=== PATIENT | male | born 1995 | race African-American/Black ===

== ENCOUNTER 2017-01-20 12:30 | Emergency (ER) | payer SELFPAY ==
[~2017-01-20] VITALS: Ht 185.4 cm; Wt 81.6 kg
[2017-01-20 12:43] VITALS: BP 129/86
[2017-01-20] MEDS ORDERED: Lidocaine 2% Visc 15ml soln ORAL ONE (13:00)
[2017-01-20] MEDS ORDERED: Mylanta II UD 30ml ORAL ONE (13:00)
[2017-01-20] MEDS ORDERED: Dicyclomine HCl 10mg/5ml oral soln ORAL ONE (13:00)
[2017-01-20] MEDS ORDERED: MIRALAX119 GM PO (13:46)
[2017-01-20] MEDS ORDERED: PEPCID40 MG PO (13:46)
--- NOTE | 2017-01-20 14:06 | Diagnostic Imaging Report ---
Indications: Abdominal pain. Technique: AP view of the abdomen Findings: Comparison: None. Bowel gas pattern is unremarkable. No abnormal calcific or soft tissue densities are demonstrated. Visualized skeletal structures are unremarkable. IMPRESSION: Negative abdominal radiograph
[2017-01-20 14:23] VITALS: BP 129/86
--- NOTE | 2017-01-20 16:41 | Emergency Room Report ---
History of Present Illness General Chief Complaint: General Complaint Source: Patient Present Illness HPI The patient is a 21-year-old male presenting with abdominal pain. The patient states that this pain began yesterday after eating danish bbq. The pain is described as a 4/10 dull ache to the mid upper abdomen and does not radiate. Pain is constant. No known provoking or leading factors. The patient does admit to recent constipation. Last bowel movement was today but was small and hard. The last bowel movement before this was 3 days prior. The patient denies any other symptoms including nausea, vomiting, fever, chills, diarrhea, dysuria, back pain, myalgia Allergies: Coded Allergies: No Known Allergies (Unverified , 01/20/17) Patient History Past Medical History: see triage record Pertinent Family History: none Reviewed Nursing Documentation: PMH: Agreed, PSxH: Agreed Nursing Documentation-PMH Past Medical History: No Stated History Review of Systems All Other Systems: negative except mentioned in HPI Physical Exam Vital Signs Date Time Temp Pulse Resp B/P Pulse Ox O2 Delivery O2 Flow Rate FiO2 01/20/17 12:43 97.9 88 18 129/86 100 Room Air Sp02 EP Interpretation: reviewed, normal General Appearance: no apparent distress, alert, GCS 15, non-toxic Head: normocephalic, atraumatic Eyes: bilateral eye PERRL, bilateral eye normal inspection ENT: hearing grossly normal, normal pharynx, no angioedema, normal voice Neck: full range of motion, supple/symm/no masses Respiratory: chest non-tender, lungs clear, normal breath sounds, no wheezing, speaking full sentences Cardiovascular #1: regular rate, rhythm, no edema Gastrointestinal: normal bowel sounds, soft, no mass, no guarding, tenderness - epigastric Rectal: deferred Genitourinary: normal inspection, no CVA tenderness Musculoskeletal: back normal, gait/station normal, normal range of motion, non- tender Neurologic: alert, oriented x3, responsive, motor strength/tone normal, sensory intact, speech normal Psychiatric: judgement/insight normal, memory normal, mood/affect normal, no suicidal/homicidal ideation Skin: normal color, no rash, warm/dry, well hydrated Lymphatic: no adenopathy Medical Decision Making PA Attestation Dr. Quigley is my supervising physician. Patient management was discussed with my supervising physician Diagnostic Impression: Primary Impression: GERD (gastroesophageal reflux disease) Additional Impression: Constipation ER Course The patient is a 21-year-old male presenting with abdominal pain Differential diagnoses considered but not limited to: Gastroenteritis, GERD, constipation, appendicitis Physical exam: Vitals are within normal limits. No apparent distress Abdomen is soft. Tenderness to palpation over the epigastric region only. No McBurney point tenderness. Normal bowel sounds. No CVA tenderness The patient is given a GI cocktail and is feeling better Abdominal x-ray unremarkable The patient was discharged home with a prescription for MiraLAX and Pepcid. ER precautions are given and the patient will followup with PMD Other X-Ray Diagnostic Results Other X-Ray Diagnostic Results : X-Ray Ordered: Abd xray Date: Jan 20, 2017 EP Interpretation: Yes Findings: no fractures, no dislocation, no soft tissue swelling Number of Views: 1 PA Scribe Text I am acting as scribe for my supervising physician. My supervising physician's interpretation of the abd xrays are there are no acute findings Last Vital Signs Date Time Temp Pulse Resp B/P Pulse Ox O2 Delivery O2 Flow Rate FiO2 01/20/17 14:23 97.9 18 129/86 100 Room Air 01/20/17 12:43 91 Status: unchanged Disposition: HOME, SELF-CARE Condition: Improved Scripts Polyethylene Glycol 3350 (MIRALAX) 119 Gm Powder 17 GM PO DAILY, #119 GM Prov: EUGENIA [email or web address] 01/20/17 Famotidine (PEPCID) 40 Mg Tablet 40 MG PO DAILY, #7 TAB 0 Refills Prov: EUGENIA WEEKS 01/20/17 Patient Instructions: Constipation, Adult, Indigestion Additional Instructions: I discussed my findings with the patient. All questions and concerns have been answered. Treatment and medication compliance have been addressed. I advised the patient that they need to follow up with PMD in 3-5 days. Return to ED if symptoms worsen, new symptoms arise, or if needed for any reason. Patient verbalized understanding of discharge instructions. EUGENIA WEEKS Jan 20, 2017 16:41
== END 2017-01-20 13:55 | disposition home or self-care (01) ==
LOC: EMR 13:12
DX: K59.00 Constipation, unspecified (principal); K21.9 Gastro-esophageal reflux disease without esophagitis
CPT/HCPCS: 74000; 99284

== ENCOUNTER 2017-01-23 09:36 | Emergency (ER) | payer SELFPAY ==
[~2017-01-23] VITALS: Ht 190.5 cm; Wt 90.7 kg
[~2017-01-23 09:36] MED LIST: MIRALAX119 GM PO; PEPCID40 MG PO
[2017-01-23 09:55] VITALS: BP 119/81
[2017-01-23] MEDS ORDERED: Dicyclomine HCl 10mg/5ml oral soln ORAL ONE (10:00)
[2017-01-23] MEDS ORDERED: Mylanta II UD 30ml ORAL ONE (10:00)
[2017-01-23] MEDS ORDERED: Lidocaine 2% Visc 15ml soln ORAL ONE (10:00)
[2017-01-23] MEDS ORDERED: RANITIDINE HCL150 MG ORAL (10:13)
[2017-01-23 10:20] VITALS: BP 119/81
--- NOTE | 2017-01-23 10:48 | Emergency Room Report ---
History of Present Illness General Chief Complaint: Abdominal Pain Source: Patient Present Illness HPI 21-year-old male presents ED complaining of abdominal pain x3 days. Patient states the pain is epigastric, burning, 8/10, nonradiating. Denies chest pain or shortness of breath. Denies nausea or vomiting. Patient states she was here 3 days ago for similar complaint. Was given GI cocktail-noted to have gastritis with substernal he discharged on Pepcid. Patient states he was unable to fill the Pepcid prescription. No other aggravating or relieving factors. Denies any other associated symptoms Allergies: Coded Allergies: No Known Allergies (Unverified , 01/20/17) Patient History Past Medical History: none Past Surgical History: none Pertinent Family History: none Social History: Denies: alcohol use, drug use, smoking Immunizations: UTD Reviewed Nursing Documentation: PMH: Agreed, PSxH: Agreed Nursing Documentation-PMH Past Medical History: No Stated History Review of Systems All Other Systems: negative except mentioned in HPI Physical Exam Vital Signs Date Time Temp Pulse Resp B/P Pulse Ox O2 Delivery O2 Flow Rate FiO2 01/23/17 09:42 98.6 80 18 119/81 98 Room Air Sp02 EP Interpretation: reviewed, normal General Appearance: no apparent distress, alert, GCS 15, non-toxic Head: normocephalic Eyes: bilateral eye PERRL, bilateral eye normal inspection ENT: normal ENT inspection Neck: normal inspection Respiratory: normal inspection Cardiovascular #1: normal inspection Gastrointestinal: normal bowel sounds, soft, non-distended, no guarding, no rebound, tenderness - epigastric Rectal: deferred Genitourinary: no CVA tenderness Musculoskeletal: normal inspection Neurologic: alert, oriented x3, responsive, motor strength/tone normal, sensory intact, speech normal Psychiatric: normal inspection Skin: normal inspection Lymphatic: normal inspection Medical Decision Making Diagnostic Impression: Primary Impression: GERD (gastroesophageal reflux disease) Qualified Codes: K21.9 - Gastro-esophageal reflux disease without esophagitis ER Course Hospital Course 21-year-old M presents to ED with epigastric pain differential diagnosis: gastritis, SBO, cholecystits Clinical course Patient placed on stretcher. 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 After initial history physical exam reveals a young male in no acute distress. Noted epigastric pain however belly is soft. No guarding or rebound. My suspicion for acute process is low. Patient appears nontoxic. Should symptoms likely return because he was unable to fill the prescription. We will provide a prescription for Zantac. Given GI cocktail and Zantac in ED. On reassessment symptoms have improved I feel this is a highly complex case requiring extensive working including EKG/ Rhythm strip, Xray/CT/US, Blood/urine lab work, repeat exams while in ED, and administration of strong opiates/narcotics for pain control, admission to hospital or close patient follow up. Diagnosis - GERD Stable and discharged to home with prescriptions for Zantac. Followup with PMD. Return to ED if symptoms recur or worsen Last Vital Signs Date Time Temp Pulse Resp B/P Pulse Ox O2 Delivery O2 Flow Rate FiO2 01/23/17 09:55 98.6 80 18 119/81 98 Room Air Status: improved Disposition: HOME, SELF-CARE Condition: Stable Scripts Ranitidine Hcl* (ZANTAC*) 150 Mg Tablet 150 MG ORAL TWICE A DAY, #30 TAB Prov: ABELARDO RAMIREZ M.D. 01/23/17 Referrals: NON PHYSICIAN (PCP) Patient Instructions: Gastritis, Adult ABELARDO RAMIREZ M.D. Jan 23, 2017 10:48
== END 2017-01-23 10:20 | disposition home or self-care (01) ==
LOC: EMR 10:05
DX: K21.9 Gastro-esophageal reflux disease without esophagitis (principal)
CPT/HCPCS: 99283